=== PATIENT | male | born 1970 | race Asian ===

== ENCOUNTER 2021-04-13 16:30 | Inpatient (IN) | payer MEDICAID ==
[~2021-04-13] VITALS: Ht 167.6 cm; Wt 79.8 kg
[2021-04-13 17:07] LABS: BASOPHILS % 0.5 % (0.0-2.0); EOSINOPHILS % 1.1 % (0.0-5.0); HEMATOCRIT. 38.4 % (42.0-52.0); HEMOGLOBIN. 13.4 g/dL (14.0-18.0); LYMPHOCYTES % 9.3 % (20.0-50.0); MEAN CORPUSCULAR HEMOGLOBIN 30.7 pg (28.0-32.0); MEAN PLATELET VOLUME 6.9 fl (7.4-10.4); MONOCYTES % 7.2 % (2.0-8.0); NEUTROPHILS % 81.9 % (40.0-76.0); PLATELET 380 x1000/uL (130-400); RED BLOOD CELL COUNT 4.36 mill/uL (4.7-6.1); RED CELL DISTRIBUTION WIDTH 13.1 % (11.6-14.6)
[2021-04-13 17:13] LABS: CHLORIDE 109 mEq/L (98-107)
[2021-04-13 17:16] LABS: PROTHROMBIN TIME 10.9 sec (9.6-11.0)
[2021-04-13 17:17] LABS: ETHANOL BLOOD < 10 mg/dL
[2021-04-13] MEDS ORDERED: ASPIRIN 325MG EC TABLET PO NR (19:15)
[2021-04-13] MEDS: FUROSEMIDE 40MG/4ML VIAL IVP NR ×2 (19:16→19:17)
[2021-04-13 19:27] LABS: CLARITY URINE CLEAR (CLEAR); COLOR URINE YELLOW (YELLOW); KETONES URINE TRACE (NEGATIVE); LEUKOCYTE ESTERASE URINE NEGATIVE (NEGATIVE); NITRITE URINE NEGATIVE (NEGATIVE); OCCULT BLOOD URINE TRACE (NEGATIVE); PROTEIN URINE 1+ (NEGATIVE); SPECIFIC GRAVITY URINE 1.027 (1.005-1.030)
[2021-04-13 19:35] LABS: *AMPHETAMINES SCREEN URINE NEGATIVE (NEGATIVE); *BARBITURATES SCREEN URINE NEGATIVE (NEGATIVE); *BENZODIAZEPINES SCREEN URINE NEGATIVE (NEGATIVE); *COCAINE SCREEN URINE NEGATIVE (NEGATIVE); METHADONE URINE SCREEN NEGATIVE (NEGATIVE); OPIATES URINE SCREEN NEGATIVE (NEGATIVE)
[2021-04-13 19:36] LABS: CANNABINOID URINE SCREEN NEGATIVE (NEGATIVE); PHENCYCLIDINE URINE SCREEN NEGATIVE (NEGATIVE)
[2021-04-13] MEDS ORDERED: ACETAMINOPHEN 325MG TABLET PO PRN (22:15)
[2021-04-13] MEDS ORDERED: DIPHENHYDRAMINE 50MG/ML VIAL IV PRN (22:15)
[2021-04-13] MEDS ORDERED: CLONIDINE 0.1MG TABLET PO PRN (22:15)
[2021-04-13] MEDS ORDERED: HYDROCODONE/ACETAMINOPHEN 5/325MG TABLET PO PRN (22:15)
[2021-04-13] MEDS ORDERED: LORAZEPAM 2MG/ML CPJ IV PRN (22:15)
[2021-04-13] MEDS ORDERED: MAGNESIUM/ALUMINUM HYDROXIDE/SIMETHICONE 30ML UDC PO PRN (22:15)
[2021-04-13] MEDS ORDERED: GUAIFENESIN 200MG/10ML SUGAR FREE UDC PO PRN (22:15)
[2021-04-13] MEDS ORDERED: HYDRALAZINE 20MG/ML VIAL IV PRN (22:15)
[2021-04-13] MEDS ORDERED: ONDANSETRON HCL 4MG/2ML INJ IV PRN (22:15)
[2021-04-13] MEDS ORDERED: IPRATROPIUM/ALBUTEROL 0.5-3(2.5)MG/3ML NEB HHN PRN (22:15)
[2021-04-13] MEDS ORDERED: MORPHINE SULFATE 2 MG/ML CPJ (NOT FOR IM USE) IV PRN (22:15)
[2021-04-13] MEDS ORDERED: DOCUSATE SODIUM 100MG CAPSULE PO PRN (22:15)
[2021-04-13] MEDS ORDERED: ENOXAPARIN 40MG/0.4ML SYR SUBCUT SCH (22:30)
[2021-04-13] MEDS ORDERED: POTASSIUM CHLORIDE 20MEQ TABLET SR PO NR (22:30)
[2021-04-14 04:02] VITALS: BP 153/109
[2021-04-14] MEDS ORDERED: SODIUM CHLORIDE 0.9% INJ 3ML FLUSH IVF SCH (06:00)
[2021-04-14 06:49] LABS: CHLORIDE 106 mEq/L (98-107)
[2021-04-14 06:51] LABS: BASOPHILS % 0.4 % (0.0-2.0); EOSINOPHILS % 1.5 % (0.0-5.0); HEMATOCRIT. 39.8 % (42.0-52.0); HEMOGLOBIN. 13.7 g/dL (14.0-18.0); LYMPHOCYTES % 14.2 % (20.0-50.0); MEAN CORPUSCULAR HEMOGLOBIN 30.6 pg (28.0-32.0); MEAN CORPUSCULAR VOLUME 88.5 fL (80.0-94.0); MEAN PLATELET VOLUME 7.4 fl (7.4-10.4); MONOCYTES % 10.1 % (2.0-8.0); NEUTROPHILS % 73.8 % (40.0-76.0); PLATELET 396 x1000/uL (130-400); RED BLOOD CELL COUNT 4.49 mill/uL (4.7-6.1); RED CELL DISTRIBUTION WIDTH 13.1 % (11.6-14.6)
[2021-04-14 07:01] LABS: CREATINE KINASE 41 IU/L (39-308)
[2021-04-14 07:05] LABS: CREATINE KINASE MB FRACTION < 1.0 ng/mL (0.5-3.6)
[2021-04-14] MEDS ORDERED: FUROSEMIDE 40MG/4ML VIAL IVP SCH (09:00)
[2021-04-14 09:10] LABS: T4 FREE 1.3 ng/dL (0.76-1.46)
[2021-04-14] MEDS ORDERED: POTASSIUM CHLORIDE 20MEQ TABLET SR PO NR (09:45)
== END 2021-04-14 10:45 | disposition left against medical advice (07) | DRG 194 ==
LOC: ER 16:30 → MICUSO 21:39 → EDBEDREQ 21:42 → EDBEDREQTM 21:42 → ENRESERV 22:30 → 7EST 23:16
PROVIDERS: ADMIT Internal Medicine; ATTEND Internal Medicine
DX: I11.0 Hypertensive heart disease with heart failure (principal); E44.1 Mild protein-calorie malnutrition; I50.9 Heart failure, unspecified; E87.6 Hypokalemia; F17.210 Nicotine dependence, cigarettes, uncomplicated; Z53.29 Procedure and treatment not carried out because of patient's decision for other reasons; Z82.49 Family history of ischemic heart disease and other diseases of the circulatory system; Z86.73 Personal history of transient ischemic attack (TIA), and cerebral infarction without residual deficits; Z20.822 Contact with and (suspected) exposure to COVID-19; Z68.27 Body mass index [BMI] 27.0-27.9, adult; Z71.6 Tobacco abuse counseling; R53.1 Weakness
CPT/HCPCS: 36415; 71045; 80053; 80061; 80305; 80320; 81003; 82550; 82553; 83036; 83605; 83880; 84439; 84443; 84484; 85025; 86850; 86900; 87426; 93005; 93970; 99291; J0360; J1650; J1940; G0480